=== PATIENT | male | born 1970 | race African-American/Black ===

== ENCOUNTER → 2021-01-28 | Outpatient (CLI) | payer OTHER | LOC: MRI 13:47 | PROVIDERS: ATTEND Specialist | DX: S83.222A Peripheral tear of medial meniscus, current injury, left knee, initial encounter (principal); M75.101 Unspecified rotator cuff tear or rupture of right shoulder, not specified as traumatic ==

== ENCOUNTER → 2021-02-20 | Day surgery (SDC) | payer OTHER ==
[~2021-02-20] MED LIST: ACETAMINOPHEN/CODEINE 300MG - 30MG TAB ONE; ATORVASTATIN CA10 MG PO; BUPIVACAINE HCL 0.5% INJ 30 ML VIAL INJ ONE; DEXAMETHASONE SOD PHOS INJ 4 MG/ML VIAL ONE; LIDOCAINE HCL 2% LOCAL INJ 5 ML SDV VIAL INJ ONE; ONDANSETRON HCL INJ 2MG/ML 2ML 2 MG/ML VIAL ONE; POVIDONE IODINE 0.05% 0.05 % ML PO ONE; PROPOFOL IV EMULSION 10 MG/ML 20 ML VIAL ONE; SEVOFLURANE INHAL SOLN 250 ML PEN BTL ONE; SODIUM CHLORIDE 0.9% 50ML 100 ML ONE
[2021-02-20 10:30] VITALS: BP 139/89
== END | disposition home or self-care (01) ==
LOC: OR 05:30
PROVIDERS: ATTEND Specialist
DX: S83.242A Other tear of medial meniscus, current injury, left knee, initial encounter (principal); M17.12 Unilateral primary osteoarthritis, left knee; M67.52 Plica syndrome, left knee; M23.42 Loose body in knee, left knee; E78.00 Pure hypercholesterolemia, unspecified; M75.101 Unspecified rotator cuff tear or rupture of right shoulder, not specified as traumatic; Z01.810 Encounter for preprocedural cardiovascular examination; Z01.812 Encounter for preprocedural laboratory examination; Z20.822 Contact with and (suspected) exposure to COVID-19; Z09 Encounter for follow-up examination after completed treatment for conditions other than malignant neoplasm; Z86.718 Personal history of other venous thrombosis and embolism
CPT/HCPCS: 29875; 29881; 93005; J0690; J1100; J2001; J2405; J2704; U0002